=== PATIENT | female | born 1970 | race Caucasian/White ===

== ENCOUNTER 2018-10-25 15:00 | Outpatient (RCR) | payer OTHER, SELFPAY ==
--- NOTE | 2018-10-08 15:28 | HP.OTEVAL ---
Patient's Visit Information DORA ELISE is a 48 year old F, referred to Occupational Therapy by ELIAS TALAMANTES, with a diagnosis of left hand crush injury. Date of Evaluation: 10/07/18 Occupational Therapist: EVENS Bhatti/Ekaterina, CHT - Subjective Subjective: This 48 year old female was seen for initial OT eval- due to left hand crush injury on . pt states swelling comes and goes and at night she gets tingling and has. wrist soreness with increase in activities. pt would like to get more strength and return to her job duties. - Pain left hand 2 Pain Intensity Range: 0, 4 - ROM ROM Comments: pt demo left hand ROM WFL - Strength Cooler Room Worker: right 90# left 20# Lateral Pinch: right 8# left 2# Tripod Pinch: right 12# left 4# Strength Comments: pt demo weak left locker room manager and pinch - Edema Wrist: right 15.5cm left 16cm PIP: right 5.5cm left 5.7cm Proximal Phalanx: right 19cm left 19cm - Sensation Thumb: right 2.44 left 3.22 Index: right 2.44 left 3.22 Middle: right 2.44 left 3.22 Ring: right 2.44 left 3.22 Little: right 2.44 left 3.22 - Goals Goal:: PT will demo an increase in locker room manager strength by 20# to increase independent with basic occupations of daily living to return pt to PLOF by D/C. Pt will demo an increase in lateral and tripod pinch by 2# to increase pts independent with opening baggies, containers at PLOF by D/C. Goal:: Pt will report pain no greater than 1/10 with use of affected hand with BADLs and IADLs by d/c. Goal:: Pt will demo understanding of edema control techniques by end of 2nd session and perform recommendations to control edema. Goal:: Pt will demo the ability to tolerate touch to the dorsal hand with pain no greater than 1/10 while performing ADLs and IADLS by d/c. Goal:: pt will demo use of work ergo to decrease stress to carpal region and allow for healing by end of 3rd visit. - Rehabilitation General Assessment: pt demo with pain and a decrease in left locker room manager and pinch strength- this is limititing pts ind. with work and home mtg tasks. Pt would benefit from skilled TO services 2-3x weekf for 4 weeks to return pt to PLOF. Today pt was ed, on edema cont. nicol. ie edema glove, k-tape and Ice. pt demo understanding. Therapy will initiate carpal stability ex and progress pt as able. Pt was given handout and demo understanding of ex and agree to POC. Rehabilitation Potential: Good - Anticipated Interventions Anticipated Interventions: Strengthening, Edema Control, Desensitization, Sensory Retraining, Modalities, Ergonomic Education - Visit Plan Frequency: 3x /Week Duration: 4 Weeks TEXT: Thank you for the opportunity to evaluate your patient. For Medicare and Medicare HMO plans, please review the plan of care and approve it. It will need to be FAXED BACK to us at [phone] for Medicare purposes. Please let me know if there are questions or concerns regarding this plan of care. Physician Signature: Date:
--- NOTE | 2018-10-24 17:38 | OTREVAL_ITS ---
ELIAS TALAMANTES, It has been my pleasure to treat DORA ELISE over the last 8 visits for left hand crush injury. Please see the progress note below for an update on the occupational therapy plan of care! Subjective: pt arrives states she came from work- no pain -reports feeling good. Objective/Function: right horticultural agent 45#. right lateral pinch 8#. right tripod pinch 10#. edema at right MF PIP 5.7. left wrist circum. 15.0cm down from 16cm - pt demo good ROM some pulling with end range forearm sup/pron. Pt has initiated LA E and is caitlin. fair- will cont with PRE as caitlin Plan Frequency: 3x /Week Duration: 4 Weeks Plan: cont with POC as pt progress with strengthening Goals - Goals Goal:: PT will demo an increase in horticultural agent strength by 20# to increase independent with basic occupations of daily living to return pt to PLOF by D/C. Pt will demo an increase in lateral and tripod pinch by 2# to increase pts independent with opening baggies, containers at PLOF by D/C. Goal:: Pt will report pain no greater than 1/10 with use of affected hand with BADLs and IADLs by d/c. Goal:: Pt will demo understanding of edema control techniques by end of 2nd session and perform recommendations to control edema. Goal:: Pt will demo the ability to tolerate touch to the dorsal hand with pain no greater than 1/10 while performing ADLs and IADLS by d/c. Goal:: pt will demo use of work ergo to decrease stress to carpal region and allow for healing by end of 3rd visit. Anticipated Interventions Anticipated Interventions: Strengthening, Edema Control, Desensitization, Sensory Retraining, Modalities, Ergonomic Education Please do not hesitate to contact me at [phone] by phone or if you have questions or concerns regarding this new plan of care! Sincerely, Kath Lopez, TRUPTIR/L, CHT
--- NOTE | 2018-11-05 10:38 | HP.OTDCSUM_ITS ---
HP - OT D/C Summary It has been my pleasure to treat DORA ELISE under orders from ELIAS TALAMANTES, for the diagnosis of left hand crush injury for a total of 9 visit(s). Please see the following information for a summary of their discharge status. - Overall Improvement % Improvement: 85 - Objective Objective/Function: right quartz miner blasting 45#. right lateral pinch 8#. right tripod pinch 10#. edema at right MF PIP 5.7. left wrist circum. 15.0cm down from 16cm - pt demo good ROM some pulling with end range forearm sup/pron. Pt has initiated PRE and is caitlin. fair- will cont with PRE as caitlin - Goals Patient Goals: Regain Strength, Decrease Pain, Decrease Swelling/Stiffness, Improve Fine Motor Skills, Use Hand/Wrist/Arm Normally Again, Decrease Tingling/Numbness, Decrease Sensitivity Goal:: PT will demo an increase in quartz miner blasting strength by 20# to increase independent with basic occupations of daily living to return pt to PLOF by D/C. Pt will demo an increase in lateral and tripod pinch by 2# to increase pts independent with opening baggies, containers at PLOF by D/C. Goal:: Pt will report pain no greater than 1/10 with use of affected hand with BADLs and IADLs by d/c. Goal:: Pt will demo understanding of edema control techniques by end of 2nd session and perform recommendations to control edema. Goal:: Pt will demo the ability to tolerate touch to the dorsal hand with pain no greater than 1/10 while performing ADLs and IADLS by d/c. Goal:: pt will demo use of work ergo to decrease stress to carpal region and allow for healing by end of 3rd visit. - Plan Plan: cont POC - D/C Information If there are questions or concerns regarding this patient's occupational therapy, please fell free to call me at [phone]. Thank you for the referral of this patient. Sincerely, Kath Lopez, OTR/L, JIANT
== END 2018-10-25 19:00 | disposition home or self-care (01) ==
LOC: OT 15:00
PROVIDERS: Family Provider Family Medicine; PCP Family Medicine
DX: S67.22XD Crushing injury of left hand, subsequent encounter (principal); S60.222D Contusion of left hand, subsequent encounter
CPT/HCPCS: 97035; 97110; 97140; 97166; 97530

== ENCOUNTER 2020-08-13 14:18 | Outpatient (RCR) | payer BC, SELFPAY | END 2020-10-26 23:59 | LOC: IMMUN 14:18 | PROVIDERS: PCP Family Medicine; Visit Provider Family Medicine | DX: Z23 Encounter for immunization (principal) | CPT/HCPCS: 0001A; 0002A; 91300 ==

== ENCOUNTER 2023-10-28 10:32 | Emergency (ER) | payer BC, SELFPAY ==
[2023-10-28 10:33] VITALS: BP 136/89; PULSE 97; RESP 18; TEMP 36.4; O2SAT 99; BMI 27.6
--- NOTE | 2023-10-28 11:18 | EKG12_ITS ---
Test Reason : SYNCOPE Blood Pressure : / mmHG Vent. Rate : 097 BPM Atrial Rate : 097 BPM P-R Int : 126 ms QRS Dur : 082 ms QT Int : 360 ms P-R-T Axes : 062 036 007 degrees QTc Int : 457 ms Normal sinus rhythm Nonspecific ST abnormality Abnormal ECG Confirmed by Dejuan Castillo ([id number]), order editor TATI MELVIN ([id number]) on 10/29/2023 11:20:05 AM Referred By: Confirmed By:Dejuan Castillo
--- NOTE | 2023-10-28 11:27 | EX.ED.DYSGE1 ---
HPI <YURY Waggoner - Last Filed: 10/28/23 14:55> History of Present Illness Chief Complaint: Syncope Narrative Narrative: Patient presenting due to a syncopal episode and mid back pain. She reports that last night she was out to eat with her , she got up to use the restroom and while urinating she began to feel hot and shaky, she stood up and passed out. She denies any chest pain or shortness of breath prior to this episode. She is not sure if she hit her head but she denies any blood thinner use or head pain. She reports pain to her left mid back. She denies bowel/bladder incontinence and saddle paresthesia. She reports that she also is feeling dehydrated. She denies fevers, chills, cardiac history, recent illness, abdominal pain, nausea, vomiting. [facility] <YURY Waggoner - Last Filed: 10/28/23 14:55> [facility] Medical History (Updated 10/28/23 @ 13:19 by YURY Waggoner) Hypertension Home Medications ?Medication ?Instructions ?Recorded ?Last Taken ?Type hydrochlorothiazide 25 mg tablet 25 mg PO DAILY 10/28/23 Unknown History meloxicam 15 mg tablet 15 mg PO DAILY 10/28/23 Unknown History omeprazole 20 mg capsule,delayed 20 mg PO DAILY 10/28/23 Unknown History release tramadol 50 mg tablet 50 mg PO Q4H PRN PRN Pain #15 tabs 10/28/23 Unknown Rx triamcinolone acetonide 0.1 % 1 applic topical BID PRN 10/28/23 Unknown History topical ointment valacyclovir 1 gram tablet 1,000 mg PO TID 10/28/23 Unknown History Allergy/AdvReac Type Severity Reaction Status Date / Time No Known Allergies Allergy Verified 10/28/23 10:33 Social History Smoking Status: Never smoker ROS <YURY Waggoner - Last Filed: 10/28/23 14:55> ROS ED Constitutional Constitutional ED: Denies chills or fever(s) Cardiovascular Cardiovascular: Denies chest pain or palpitations Respiratory/Chest Respiratory/Chest: Denies dyspnea Gastrointestinal Gastrointestinal: Denies abdominal pain, nausea or vomiting Genitourinary Genitourinary ED: Denies dysuria Musculoskeletal Musculoskeletal: Reports back pain Integumentary Denies Abrasions Neurologic Neurologic: Denies headache(s), paresthesias or weakness EXAM <YURY Waggoner - Last Filed: 10/28/23 14:55> Physical Exam Const Vital Signs: 10/28/23 10:33 10/28/23 12:33 10/28/23 12:33 Temperature 97.5 F L Temperature Source Temporal Pulse Rate 97 70 Respiratory Rate 18 19 H Respiratory Effort Normal Respiratory Pattern Normal Blood Pressure 136/89 H 145/86 H Blood Pressure Mean 104 105 Pulse Ox 99 94 Oxygen Delivery Method Room Air 10/28/23 13:45 Temperature 97.0 F L Temperature Source Pulse Rate 87 Respiratory Rate 16 Respiratory Effort Respiratory Pattern Blood Pressure 112/78 Blood Pressure Mean 89 Pulse Ox 95 Oxygen Delivery Method Positive well nourished, well developed and no apparent distress General Appearance ED: well developed HEENT Reports normocephalic, head/scalp atraumatic and dry mucous membranes Mouth ED: Yes dry mucous membranes Mouth: dry mucous membranes Eyes PERRL and EOMs intact bilaterally Neck full ROM and supple Chest Wall inspection of chest normal Resp normal respiratory effort and clear to auscultation bilaterally Cardio regular rate and regular rhythm GI soft to palpation, non-tender, non-distended and no masses Back/Spine normal ROM and normal to inspection Back/Spine Narrative: Pain to palpation to the left mid thoracic paraspinal muscles, no midline tenderness to the cervical, thoracic, lumbar, or sacral spine. No pain to palpation to the left lateral rib cage. Extremity normal to inspection and full ROM Neuro oriented x3, CN's II-XII intact bilaterally, moves all extremities, no focal motor deficits and no sensory deficits noted Sensorium / Orientation: awake and alert Motor Exam: strength 5/5 throughout Deep Tendon Reflexes: Rt Patellar (L4): 2+ and Lt Patellar (L4): 2+ Deep Tendon Reflexes Back: Rt Patellar (L4): 2+ and Lt Patellar (L4): 2+ Psych mental status grossly normal and thought process normal Skin no rashes or lesions noted and no wounds <Dr. Samuel Renee MD - Last Filed: 10/28/23 11:59> Physical Exam Const Vital Signs: 10/28/23 10:33 10/28/23 12:33 10/28/23 12:33 Temperature 97.5 F L Temperature Source Temporal Pulse Rate 97 70 Respiratory Rate 18 19 H Respiratory Effort Normal Respiratory Pattern Normal Blood Pressure 136/89 H 145/86 H Blood Pressure Mean 104 105 Pulse Ox 99 94 Oxygen Delivery Method Room Air 10/28/23 13:45 Temperature 97.0 F L Temperature Source Pulse Rate 87 Respiratory Rate 16 Respiratory Effort Respiratory Pattern Blood Pressure 112/78 Blood Pressure Mean 89 Pulse Ox 95 Oxygen Delivery Method [facility] <YURY Waggoner - Last Filed: 10/28/23 14:55> [facility] Narrative Medical decision making narrative: Patient presenting today due to left mid back pain that she has had since having a syncopal episode last night. She does have reproducible tenderness to her left thoracic paraspinal muscles, this is consistent with a muscular strain. She does not have any midline tenderness to her back. Cardiac labs will be obtained given her episode of syncope as well as an EKG to rule out arrhythmia. Patient given IV fluids as she is clinically dry and Toradol for pain. CBC, BMP, and troponin obtained. She does have hypokalemia and was given potassium replacement. Troponin is WNL. EKG normal sinus rhythm, x-ray of the left ribs negative for fracture. On examination she does report improvement of her back pain. I encouraged that she follow-up with her PCP. She will be given a prescription for tramadol for her back pain. Patient discharged home in stable condition. Lab Data Attestation: I reviewed the patient's lab results. Lab results narrative: Potassium 3.0, troponin 3 Labs: Laboratory Results - last 24 hr 10/28/23 11:30 WBC 10.0 RBC 4.83 Hgb 14.3 Hct 42.5 MCV 88.0 MCH 29.6 MCHC 33.6 RDW Std Deviation 44.8 H RDW Coeff of Lynn 13.9 Plt Count 344 MPV 9.6 Immature Gran % (Auto) 0.500 Neut % (Auto) 77.6 H Lymph % (Auto) 16.2 L Giles % (Auto) 4.7 Eos % (Auto) 0.9 Baso % (Auto) 0.1 Absolute Neuts (auto) 7.7 Absolute Lymphs (auto) 1.61 Nucleated RBC % 0 Sodium 136 Potassium 3.0 L Chloride 101 Carbon Dioxide 28.0 Anion Gap 7 BUN 8 Creatinine 0.90 Estim Creat Clear Calc 72.42 Est GFR (MDRD) Af Amer 85 Est GFR (MDRD) Non-Af 70 BUN/Creatinine Ratio 8.9 L Glucose 107 H Calcium 10.2 H Troponin I High Sens 3 Radiography X-Ray: Read by ED Physician Diagnostic Testing: Clinical Impression(s) from Imaging Studies Ribs X-Ray 10/28/23 11:56 IMPRESSION: Normal x-ray examination of the ribs. Electronically Signed: Kenny Persaud MD at 12:40 EDT , EKG Initial EKG: Comments: 97 bpm, normal sinus rhythm, no ST elevation, no signs of cardiac ischemia, reviewed and interpreted by attending ED physician <Dr. Samuel Renee MD - Last Filed: 10/28/23 11:59> [facility] Lab Data Labs: Laboratory Results - last 24 hr 10/28/23 11:30 WBC 10.0 RBC 4.83 Hgb 14.3 Hct 42.5 MCV 88.0 MCH 29.6 MCHC 33.6 RDW Std Deviation 44.8 H RDW Coeff of Lynn 13.9 Plt Count 344 MPV 9.6 Immature Gran % (Auto) 0.500 Neut % (Auto) 77.6 H Lymph % (Auto) 16.2 L Giles % (Auto) 4.7 Eos % (Auto) 0.9 Baso % (Auto) 0.1 Absolute Neuts (auto) 7.7 Absolute Lymphs (auto) 1.61 Nucleated RBC % 0 Sodium 136 Potassium 3.0 L Chloride 101 Carbon Dioxide 28.0 Anion Gap 7 BUN 8 Creatinine 0.90 Estim Creat Clear Calc 72.42 Est GFR (MDRD) Af Amer 85 Est GFR (MDRD) Non-Af 70 BUN/Creatinine Ratio 8.9 L Glucose 107 H Calcium 10.2 H Troponin I High Sens 3 Radiography Diagnostic Testing: Clinical Impression(s) from Imaging Studies Ribs X-Ray 10/28/23 11:56 IMPRESSION: Normal x-ray examination of the ribs. Electronically Signed: Kenny Persaud MD at 12:40 EDT , Treatment and Re-Evaluation Comments:: I have personally performed a face to face assessment of the patient and have reviewed the DIEGO Note. I performed a substantive portion of the visit including all aspects of the following. My reyes findings include: History is syncopal episode with a brief prodrome while urinating on the toilet at a restaurant. No recent illness. States she woke up on the floor with emesis on her and pain in her left low back. Hurts more to move. Has been about 12 hours or more since the episode occurred and she has had no recurrence. No recent medication changes. Exam is heart regular, no bradycardia or tachycardia. Lungs clear to auscultation throughout. Tender with limited range of motion in the left low back paraspinal area including the lower ribs no crepitance or step-off. No midline tenderness. Neurovascular intact distally all 4 extremities. Otherwise benign exam. Medical Decison Making EKG, nursing department chairperson, labs, will x-ray her left rib cage evaluate for fracture #9, 10, or 11. Will offer her analgesics. Other additions or changes: [None] Discharge Plan Triage Chief Complaint: Syncope ED Midlevel Provider: Yohana Gill ED Provider: Samuel Renee Dx/Rx/DC Orders Clinical Impression: Syncope, Strain of thoracic back region Instructions: ED Back Sprain/Strain, ED Fainting, Uncertain Cause Prescriptions: New tramadol 50 mg tablet 50 mg PO Q4H PRN PRN (Reason: Pain) Qty: 15 0RF No Action meloxicam 15 mg tablet 15 mg PO DAILY triamcinolone acetonide 0.1 % ointment 1 applic topical BID PRN omeprazole 20 mg capsule,delayed release(DR/EC) 20 mg PO DAILY hydrochlorothiazide 25 mg tablet 25 mg PO DAILY valacyclovir 1 gram tablet 1,000 mg PO TID Stand Alone Forms: Work Status Form Primary Care Provider: Cristino Vanessa Referrals: Cristino Vanessa MD [Primary Care Provider] - 3-5 Days Activity Restrictions/Additional Instructions: Follow-up with your PCP and return for any worsening of your symptoms. Print Language: Ukrainian Disposition Disposition: Home, Self Care Discharge Date/Time: 10/28/23 13:46
[2023-10-28 11:35] LABS: Absolute Lymphocyte Count 1.61 X10^3/uL (0.83-4.51); Absolute Neutrophil Count 7.7 X10^3/uL (2.0-7.7); Basophil# 0.01 X10^3/uL; Basophil% 0.1 % (0-1); Eosinophil# 0.09 X10^3/uL; Eosinophils% 0.9 % (0-5); Hematocrit 42.5 % (37-47); Hemoglobin 14.3 g/dL (12.0-15.0); Lymphocyte # 1.61 X10^3/ul (0.83-4.51); Lymphocyte % 16.2 % (19-41); Mean Corp Hgb Conc 33.6 g/dL (32-36); Mean Corpuscular Hgb 29.6 pg (27.0-32.0); Mean Platelet Vol. 9.6 fl (6.2-12.0); Monocyte# 0.47 X10^3/uL; Monocyte% 4.7 % (0-10); NRBC Flagged by Analyzer 0 % (0-5); Neutrophil # 7.73 X10^3/uL (2.7-7.7); Neutrophil % 77.6 % (47-70); Platelet Count 344 K/mm3 (150-450); RBC Distribution Width CV 13.9 % (11.6-14.6); RBC Distribution Width SD 44.8 fl (35.1-43.9); Red Blood Count 4.83 M/mm3 (4.2-5.4)
--- NOTE | 2023-10-28 11:56 | RAD_ITS ---
STUDY: X-RAY - UNILATERAL RIBS ( LEFT ) REASON FOR EXAM: Female, 53 years old. Left rib pain after trauma TECHNIQUE: 2 view(s) of the ribs. COMPARISON: None. FINDINGS: Normal visualized ribs without a demonstrated fracture. The visualized lung is clear and expanded. RAD/Ribs Unil 2V No CXR IMPRESSION: Normal x-ray examination of the ribs. Electronically Signed: Kenny Persaud MD at 12:40 EDT ,
[2023-10-28 12:04] LABS: Anion Gap 7 (5-15); BUN 8 mg/dL (7-18); BUN/Creat Ratio 8.9 RATIO (10-20); Calcium,Total 10.2 mg/dL (8.5-10.1); Chloride 101 mmol/L (98-107); EST Glomerular Filtration Rate 70 mL/min (>60); Est Glom Filt Rate - Afr Amer 85 mL/min (>60); Estimated Creatinine Clearance 72.42 ml/min; Glucose 107 mg/dL (74-106); Sodium Level 136 mmol/L (136-145); Troponin-I HS 3 pg/mL (3.0-54.0)
[2023-10-28] MEDS: Ketorolac 15 MG/ML Vial IV (12:17)
[2023-10-28] MEDS: 0.9% Normal Saline (1000mL) 1,000 ML 999 ML IV (12:18)
[2023-10-28] MEDS: Potassium Chloride Oral Tablet 20 MEQ 40 MEQ PO (12:18)
[2023-10-28 12:33] VITALS: BP 145/86; PULSE 70; RESP 19; O2SAT 94
[2023-10-28 13:45] VITALS: BP 112/78; PULSE 87; RESP 16; TEMP 36.1; O2SAT 95
== END 2023-10-28 13:46 | disposition home or self-care (01) ==
PROVIDERS: Physician Assistant; Emergency Provider Emergency Medicine; PCP Family Medicine; Visit Provider Emergency Medicine
DX: R55 Syncope and collapse (principal); E87.6 Hypokalemia; I10 Essential (primary) hypertension; S23.9XXA Sprain of unspecified parts of thorax, initial encounter; W19.XXXA Unspecified fall, initial encounter
CPT/HCPCS: 71100; 80048; 84484; 85025; 93005; 99284; J7030; A4216

== ENCOUNTER → 2025-03-17 | Outpatient (CLI) | payer OTHER, SELFPAY ==
--- NOTE | 2025-03-17 14:35 | NEURO_ITS ---
NCS and/or EMG Patient Report
--- NOTE | 2025-03-17 14:35 | NEURO ---
NCS and/or EMG Patient Report Ordering Doctor: Noel Handley DATE OF SERVICE: 03/17/25 Clinical Summary: 54 year old female patient with symptoms of numbness in digits IV and V of the right hand. Nerve Conduction Studies Summary: Nerve conduction studies performed in the right upper extremity were normal. Needle Examination Summary: Needle examination of select muscles of the right upper extremity was normal. Impression: This is a normal study. There is no electrodiagnostic evidence of a right ulnar mononeuropathy, median mononeuropathy, or cervical radiculopathy. Multi Select Codes Neurology Neurology Interp Codes: 33889-15 Musc test done w/n test comp (interp) (1) and 62383-93 Nrv cndj tst 5-6 studies (interp)
== END | disposition home or self-care (01) ==
LOC: PSN 13:36
PROVIDERS: PCP Family Medicine; Referring Provider Orthopaedic Surgery; Visit Provider Orthopaedic Surgery
DX: S60.221D Contusion of right hand, subsequent encounter (principal); S62.606D Fracture of unspecified phalanx of right little finger, subsequent encounter for fracture with routine healing
CPT/HCPCS: 95886; 95909